=== PATIENT | male | born 1935 | race Caucasian/White ===

== ENCOUNTER 2021-04-20 15:43 | Emergency (ER) | payer MEDICARE, MEDICAID ==
[~2021-04-20] VITALS: Ht 165.1 cm; Wt 82.0 kg
[2021-04-20 16:28] LABS: BASOPHILS % 0.9 % (0.0-2.0); EOSINOPHILS % 2.6 % (0.0-5.0); HEMATOCRIT. 38.6 % (42.0-52.0); HEMOGLOBIN. 13.2 g/dL (14.0-18.0); LYMPHOCYTES % 46.1 % (20.0-50.0); MEAN CORPUSCULAR HEMOGLOBIN 31.4 pg (28.0-32.0); MEAN CORPUSCULAR VOLUME 91.9 fL (80.0-94.0); MEAN PLATELET VOLUME 9.7 fl (7.4-10.4); MONOCYTES % 6.8 % (2.0-8.0); NEUTROPHILS % 43.6 % (40.0-76.0); PLATELET 139 x1000/uL (130-400); RED CELL DISTRIBUTION WIDTH 12.7 % (11.6-14.6)
[2021-04-20 16:34] LABS: CHLORIDE 101 mEq/L (98-107)
[2021-04-20 16:55] LABS: BETA HYDROXYBUTYRATE 0.1 mMol/L (0.0-0.3)
[2021-04-20] MEDS ORDERED: METFORMIN HCL 500MG TABLET PO ONE (17:15)
[2021-04-20] MEDS ORDERED: INSULIN REGULAR (HUMULIN R) 300UNITS/3ML VIAL SUBCUT ONE (17:15)
[2021-04-20] MEDS ORDERED: METF-414 MT (19:16)
[2021-04-20 20:13] VITALS: BP 155/76
== END 2021-04-20 20:15 | disposition home or self-care (01) ==
LOC: ER 15:43
DX: E11.65 Type 2 diabetes mellitus with hyperglycemia (principal); I10 Essential (primary) hypertension; Z91.14 Patient's other noncompliance with medication regimen; E78.00 Pure hypercholesterolemia, unspecified
CPT/HCPCS: 36415; 71045; 80053; 82010; 82962; 83690; 85025; 93005; 96372; 99285; J1815